=== PATIENT | male | born 1945 | race Caucasian/White ===

== ENCOUNTER 2019-05-08 07:22 | Day surgery (SDC) | payer MEDICARE, OTHER ==
[2019-05-03 11:34] VITALS: BMI 37.5
[~2019-05-08 07:22] MED LIST: HEPARIN SODIUM,PORCINE 5,000 UNIT/ML 1 ML VIAL SQ ONE; Pre Op ABX Message 1 EACH MISC MISCELLANE ONE
[2019-05-08] MEDS ORDERED: LIDOCAINE 1% (10MG/ML) FOR IV START INTRADERMA PRN (08:17)
[2019-05-08] MEDS ORDERED: SCOPOLAMINE 1.5MG/72HR PATCH TRANSDERM ONE (08:17)
[2019-05-08] MEDS ORDERED: MIDAZOLAM 2 MG/2 ML VIAL IV PRN (08:17)
[2019-05-08] MEDS ORDERED: ONDANSETRON 4 MG/2 ML VIAL IVP ONE (08:17)
[2019-05-08] MEDS ORDERED: LACTATED RINGERS 1,000 ML IV SCH (08:17)
[2019-05-08] MEDS ORDERED: DEXAMETHASONE SOD PHOSPHATE 10 MG/ML 1 ML VIAL IV ONE (08:17)
[2019-05-08] MEDS ORDERED: HYDROmorphone 0.5 MG/0.5 ML SYRINGE IVP PRN (08:17)
[2019-05-08 08:27] VITALS: TEMP 97.2
[2019-05-08 08:54] LABS: Glucose,Whole Blood 172 mg/dL (75-99)
--- NOTE | 2019-05-08 09:16 | P.GSHP ---
History of Present Illness H&P Date: 05/08/19 Chief Complaint: Sebaceous cyst posterior neck This is a 73-year-old male who presents today for excision of sebaceous cyst posterior neck. Patient's had a previous sebaceous cyst abscess. Past Medical History Past Medical History: Diabetes Mellitus, GERD/Reflux, Hyperlipidemia, Hypertension, Respiratory Disorder, Vascular Disorder Additional Past Medical History / Comment(s): O2 4L for idiopathic pulmonary fibrosis, Barretts ds, kidney stone X1 History of Any Multi-Drug Resistant Organisms: None Reported Past Surgical History: Cholecystectomy, Orthopedic Surgery Additional Past Surgical History / Comment(s): foot surgey hemorroidectomy, rt eye surgery Past Anesthesia/Blood Transfusion Reactions: No Reported Reaction Smoking Status: Former smoker - Past Family History Mother Family Medical History: Cancer Additional Family Medical History / Comment(s): lung Medications and Allergies Home Medications Medication Instructions Recorded Confirmed Type Aspirin [Adult Low Dose Aspirin EC] 81 mg PO QAM 05/03/19 05/03/19 History Atorvastatin [Lipitor] 10 mg PO DAILY 05/03/19 05/08/19 History Biotin 5 mg PO HS 05/03/19 05/03/19 History Empagliflozin [Jardiance] 25 mg PO QAM 05/03/19 05/08/19 History Esomeprazole Magnesium 40 mg PO QAM 05/03/19 05/03/19 History Fluticasone/Vilanterol [Breo 1 inhalation PO Q24HR 05/03/19 05/03/19 History Ellipta 100-25 Mcg Inhaler] Gabapentin [Neurontin] 100 mg PO BID 05/03/19 05/08/19 History Lisinopril 40 mg PO QAM 05/03/19 05/03/19 History Metoprolol Tartrate 25 mg PO Q2D 05/03/19 05/03/19 History Montelukast [Singulair] 10 mg PO HS 05/03/19 05/03/19 History NIFEdipine [NIFEdipine ER] 30 mg PO QAM 05/03/19 05/03/19 History Pioglitazone [Actos] 30 mg PO QAM 05/03/19 05/03/19 History metFORMIN HCL [metFORMIN HCL ER] 1,000 mg PO QAM 05/03/19 05/03/19 History metFORMIN HCL [metFORMIN HCL ER] 500 mg PO HS 05/03/19 05/03/19 History Pentoxifylline [TRENtal] 400 mg PO AC-TID 05/08/19 05/08/19 History Allergies Allergy/AdvReac Type Severity Reaction Status Date / Time No Known Allergies Allergy Verified 05/08/19 08:56 Surgical - Exam Vital Signs Temp Pulse Resp BP Pulse Ox 97.2 F L 71 16 134/62 95 05/08/19 08:25 05/08/19 08:25 05/08/19 08:25 05/08/19 08:25 05/08/19 08:25 - General well developed, well nourished, no distress - Eyes PERRL - ENT normal pinna - Neck no masses - Respiratory normal expansion - Cardiovascular Rhythm: regular - Abdomen Abdomen: soft - Integumentary 3cm sebaceous cyst posterior neck Results - Labs Abnormal Lab Results - Last 24 Hours (Table) 05/08/19 Range/Units 08:38 POC Glucose (mg/dL) 172 H (75-99) mg/dL Assessment and Plan Plan: Sebaceous cyst posterior neck. We'll perform excision.
[2019-05-08] MEDS ORDERED: MIDAZOLAM 2 MG/2 ML VIAL ONE (09:30)
[2019-05-08] MEDS ORDERED: KETAMINE 10 MG/ML 20 ML VIAL ONE (09:30)
[2019-05-08] MEDS ORDERED: fentaNYL (PF) 50 MCG/ML 2 ML AMP ONE (09:30)
[2019-05-08] MEDS ORDERED: GLYCOPYRROLATE 0.2 MG/ML 2 ML VIAL ONE (09:30)
[2019-05-08] MEDS ORDERED: ceFAZolin 1,000 MG VIAL IVPB ONE (09:47)
[2019-05-08] MEDS ORDERED: BUPIVACAINE (PF) 0.25% 30 ML VIAL SQ ONE ×2 (09:49)
--- NOTE | 2019-05-08 10:29 | P.OP ---
Date of Procedure: 05/08/19 Preoperative Diagnosis: Sebaceous cyst neck Postoperative Diagnosis: Patient cyst neck Procedure(s) Performed: Excision of sebaceous cyst back Anesthesia: MAC Surgeon: Jeremy Kay Estimated Blood Loss (ml): 5 Pathology: none sent Disposition: PACU Description of Procedure: The patient's placed in the operative table in the lateral position. He received IV sedation. The area the space this was anesthetized 1% local Xylocaine. Using a 15 blade skin was incised and then the sebaceous cyst with bony dissected. There is a second sebaceous cyst just lateral to the first sebaceous cyst and this was incised and removed as well. The skin was closed interrupted 3-0 Monocryl suture. Dermabond was applied. Patient top she will was sent to recovery room stable condition.
[2019-05-08 10:57] VITALS: BP 122/72; PULSE 86; RESP 20
--- NOTE | 2019-05-10 13:35 | CDI ---
Outpatient Documentation Clarification Form Date: 05/10/19 CDS/Data Processing Mechanic Name: Zuri Salcido Phone: If any questions, call Sumaya Mann Well Surveying Engineer at [phone] Patient Name: Fabián Jenkins Admit Date: 05/08/19 Discharge Date: 05/08/19 ATTENTION: The [facility] Coding Staff appreciate your assistance in clarifying documentation. Please respond to the clarification below the line at the bottom and electronically sign. The [facility] Coding staff will review the response and follow-up if needed. Please note: Queries are made part of the Legal Health Record. If you have any questions, please contact the Well Surveying Engineer. Dear Dr. Kay, Please provide clarification as to the size of the sebaceous cysts that were excised so that the account can be coded to the highest specificity. Thank you for your kind consideration. see op report addendum ZB/db 05/22 MTDD
== END 2019-05-08 11:02 | disposition home or self-care (01) ==
LOC: OR 07:22
PROVIDERS: ATTEND Surgery
DX: E11.9 Type 2 diabetes mellitus without complications (principal); K21.9 Gastro-esophageal reflux disease without esophagitis; E78.5 Hyperlipidemia, unspecified; I10 Essential (primary) hypertension; J84.112 Idiopathic pulmonary fibrosis; Z87.891 Personal history of nicotine dependence; E66.01 Morbid (severe) obesity due to excess calories; Z68.37 Body mass index [BMI] 37.0-37.9, adult; K22.70 Barrett's esophagus without dysplasia; Z90.49 Acquired absence of other specified parts of digestive tract; Z87.442 Personal history of urinary calculi; Z80.1 Family history of malignant neoplasm of trachea, bronchus and lung; Z79.899 Other long term (current) drug therapy; E78.49 Other hyperlipidemia; Z79.84 Long term (current) use of oral hypoglycemic drugs; Z79.82 Long term (current) use of aspirin; Z79.51 Long term (current) use of inhaled steroids
CPT/HCPCS: 11422; 11423; J2250; J1644; J1100; J2405; J0690; J3010